=== PATIENT | male | born 1935 | race Caucasian/White ===

== ENCOUNTER 2020-08-09 18:02 | Inpatient (IN) | payer MEDICARE, OTHER ==
[2020-08-09] MEDS ORDERED: Acetaminophen 325 MG Tab PO PRN (18:53)
[2020-08-09] MEDS ORDERED: Ondansetron 4 MG/2 ML SDV IVPUSH PRN (18:53)
--- NOTE | 2020-08-09 18:58 | PCM.HP ---
H&P History of Present Illness - General Date of Service: 08/09/20 Admit Problem/Dx: Admission Diagnosis/Problem Admission Diagnosis/Problem Pneumonia Source of Information: Patient History Limitations: Reports: No Limitations - History of Present Illness Initial Comments - Free Text/Narative: Patient is an 84-year-old male with a medical history of hypertension, hemorrhagic CVA, CLL who presented from clinic with complaints of shortness of breath, cough and dizziness. Patient initially presented to clinic a week ago with complaints of dizziness and falls. He had CT scan done which was inconclusive. This was followed by MRI which failed to show any intracranial hemorrhage or new ischemic lesions. Patient continued to have dizziness and he thought was that he had BPPV. Arrangements will be made for patient to try physical therapy. Patient return to clinic today with complaints of shortness of breath and productive cough that have developed over the past few days. He also had dizziness and generalized weakness. He denied chest pain, nausea, vomiting, diarrhea, leg swelling, fever. He has had poor appetite over the past 1 week. He denies exposure to a nyone with COVID-19. Vitals significant for hypoxia at 88% on room air requiring 2 L of oxygen to get patient above 90%. Labs showed creatinine of 1.3( baseline) and BUN of 41. He has leukocytosis of 101.74 (usually runs in the 50s to 60s due to his CLL), last week WBC was 55.75. Hemoglobin was 8.6, last week was 9.1 (baseline in the mid 9.0). Platelet count was 130 (baseline 70s to 80s). Chest x-ray showed prominent patchy densities throughout both lungs concerning for infiltrate; and small bilateral pleural effusion. Patient was sent in for admission for pneumonia. Upon admission, rapid Covid test came back positive. - Related Data Allergies/Adverse Reactions: Allergies Allergy/AdvReac Type Severity Reaction Status Date / Time codeine Allergy Stomach Verified 03/13/16 17:02 Upset Home Medications: Home Meds Aspirin [Lo-Dose Aspirin EC] 81 mg PO DAILY 03/13/16 [History] Propranolol HCl [Inderal Xl] 120 mg PO ASDIRECTED 03/13/16 [History] Past Medical History Cardiovascular History: Reports: Hypertension Respiratory History: Reports: None Gastrointestinal History: Reports: None Genitourinary History: Reports: None Neurological History: Reports: None Psychiatric History: Reports: None Endocrine/Metabolic History: Reports: None Hematologic History: Reports: None Immunologic History: Reports: None Oncologic (Cancer) History: Reports: Other (See Below) Other Oncologic History: skin Dermatologic History: Reports: None - Past Surgical History GI Surgical History: Reports: None Social & Family History - Family History Family Medical History: Noncontributory - Caffeine Use Caffeine Use: Reports: Coffee - Living Situation & Occupation Living situation: Reports: Occupation: Other H&P Review of Systems - Review of Systems: Review Of Systems: See Below General: Reports: Malaise, Decreased Appetite HEENT: Reports: No Symptoms Pulmonary: Reports: Shortness of Breath, Cough Cardiovascular: Reports: No Symptoms Gastrointestinal: Reports: No Symptoms Genitourinary: Reports: No Symptoms Musculoskeletal: Reports: No Symptoms Skin: Reports: No Symptoms Psychiatric: Reports: No Symptoms Neurological: Reports: No Symptoms, Other (Dizziness) Hematologic/Lymphatic: Reports: No Symptoms Immunologic: Reports: No Symptoms Exam - Exam Exam: See Below - Exam Quality Assessment: Supplemental Oxygen General: Alert, Oriented, 4 HEENT: PERRLA, Hearing Intact, Mucosa Moist & [place], Nares Patent, Normal Nasal Septum, Posterior Pharynx Clear, Conjunctiva Clear, EOMI, EACs Clear, TMs Clear Neck: Supple, Trachea Midline, 2 Lungs: Crackles Cardiovascular: Regular Rate, Regular Rhythm GI/Abdominal Exam: Normal Bowel Sounds, Soft, Non-Tender, No Organomegaly, No Distention, No Abnormal Bruit, No Mass, Pelvis Stable Back Exam: Normal Inspection, Full Range of Motion, NT Extremities: Normal Inspection, Normal Range of Motion, Non-Tender, No Pedal Edema, Normal Capillary Refill Skin: Warm, Dry, Intact Neurological: Cranial Nerves Intact, Reflexes Equal Bilateral Neuro Extensive - Mental Status: Alert, Oriented x3, Normal Mood/Affect, Normal Cognition Neuro Extensive - Motor, Sensory, Reflexes: CN II-XII Intact, Normal Gait, Normal Reflexes Psychiatric: Alert, Normal Affect, Normal Mood - Patient Data Lab Results Last 24 hrs: Laboratory Results - last 24 hr 08/09/20 Range/Units 18:10 SARS CoV-2 RNA Rapid DESTINEE Positive H (NEGATIVE) Problem List Initiated/Reviewed/Updated: Yes Orders Last 24hrs: Active Orders 24 hr Category Date Time Status Patient Status [ADT] Routine ADT 08/09/20 18:53 Ordered Antiembolic Devices [RC] PER UNIT ROUTINE Care 08/09/20 18:56 Ordered Cardiac Monitoring [RC] CONTINUOUS Care 08/09/20 18:55 Ordered Oxygen Therapy [RC] PRN Care 08/09/20 18:53 Ordered Up ad Annamaria [RC] ASDIRECTED Care 08/09/20 18:53 Ordered VTE/DVT Education [RC] PER UNIT ROUTINE Care 08/09/20 18:53 Ordered Vital Signs [RC] Q4H Care 08/09/20 18:53 Ordered Regular Diet [DIET] Diet 08/09/20 Dinner Ordered Acetaminophen [TylenoL] Med 08/09/20 18:53 Ordered 650 mg PO Q4H PRN Enoxaparin [Lovenox] Med 08/09/20 19:00 Ordered 40 mg SUBCUT DAILY Ondansetron [Zofran] Med 08/09/20 18:53 Ordered 4 mg IVPUSH Q4H PRN Antiembolic Hose [OM.PC] Per Unit Routine Oth 08/09/20 18:55 Ordered Resuscitation Status Routine Resus Stat 08/09/20 18:53 Ordered Assessment/Plan Comment:: COVID-19 associated pneumonia Probable bacterial pneumonia Start patient on ceftriaxone and azithromycin Start Decadron 6 mg IV daily Patient will likely benefit from Remdesivir and convalescent plasma CKD Creatinine at baseline CLL Worsening leukocytosis concerning for transformation. Hypertension Hold antibiotics for now Thrombocytopenia Appears stable
[2020-08-09] MEDS ORDERED: cefTRIAXone 1 GM in Sodium Chloride 0.9% 50 ML IV SCH (20:00)
[2020-08-09] MEDS ORDERED: Dexamethasone 4 MG/ML SDV IVPUSH SCH (20:00)
--- NOTE | 2020-08-09 20:00 | PCM.DCSUM1 ---
Discharge Summary - Hospital Course Free Text/Narrative:: Patient is an 84-year-old male with a medical history of hypertension, hemorrhagic CVA, CLL who presented from clinic with complaints of shortness of breath, cough and dizziness. He had recently had CT scan and MRI of brain which ruled out acute intracranial process. He was found to be hypoxic at 88% on room air requiring 2 L of oxygen. Labs showed creatinine of 1.3( baseline) and BUN of 41. He has leukocytosis of 101.74 (usually runs in the 50s to 60s due to his CLL), last week WBC was 55.75. Hemoglobin was 8.6, last week was 9.1 (baseline in the mid 9.0). Platelet count was 130 (baseline 70s to 80s). Chest x-ray showed prominent patchy densities throughout both lungs concerning for infiltrate; and small bilateral pleural effusion. Patient's rapid Covid test came back positive. Blood cultures was obtained. He was started on dexamethasone, ceftriaxone and azithromycin. Due to significant leukocytosis in context of CLL, his overall comorbidities and age, patient was transferred to [facility] for further medical care. Problems addressed during hospitalization COVID-19 associated pneumonia Probable bacterial pneumonia Acute hypoxic respiratory failure CKD CLL Hypertension Thrombocytopenia Diagnosis: Stroke: No - Discharge Data Discharge Date: 08/09/20 Discharge Disposition: DC/Tfer to Acute Hospital 02 Condition: Fair - Referral to Home Health Primary Care Physician: Linda Owens NP - Discharge Plan *PRESCRIPTION DRUG MONITORING PROGRAM REVIEWED*: Not Applicable *COPY OF PRESCRIPTION DRUG MONITORING REPORT IN PATIENT ARNALDO: Not Applicable Home Medications: Home Meds Aspirin [Lo-Dose Aspirin EC] 81 mg PO DAILY 03/13/16 [History] Propranolol HCl [Inderal Xl] 120 mg PO ASDIRECTED 03/13/16 [History] Oxygen Therapy Mode: Nasal Cannula Oxygen Flow Rate (L/min): 2 Maintain SpO2% greater than: 90 - Discharge Summary/Plan Comment DC Time >30 min.: Yes - General Info Date of Service: 08/09/20 Admission Dx/Problem (Free Text: Admission Diagnosis/Problem Admission Diagnosis/Problem Pneumonia Subjective Update: Patient continues to complain of cough and dizziness. CODE STATUS addressed and patient wants to be full code. - Review of Systems General: Reports: Malaise, Appetite HEENT: Reports: No Symptoms Pulmonary: Reports: Shortness of Breath, Cough Cardiovascular: Reports: No Symptoms Gastrointestinal: Reports: No Symptoms Genitourinary: Reports: No Symptoms Musculoskeletal: Reports: No Symptoms Skin: Reports: No Symptoms Neurological: Reports: Dizziness Psychiatric: Reports: No Symptoms - Patient Data Vitals - Most Recent: Last Vital Signs Temp 99.3 F 08/09/20 18:53 Pulse 72 08/09/20 18:53 Resp 24 H 08/09/20 18:53 BP 147/70 H 08/09/20 18:53 Pulse Ox 89 L 08/09/20 18:53 Lab Results - Last 24 hrs: Laboratory Results - last 24 hr 08/09/20 Range/Units 18:10 SARS CoV-2 RNA Rapid [place] Positive H (NEGATIVE) Med Orders - Current: Current Medications Acetaminophen (Tylenol) 650 mg PO Q4H PRN PRN Reason: Pain (Mild 1-3)/fever Dexamethasone (Decadron) 6 mg IVPUSH DAILY ISSA Stop: 08/18/20 09:01 Enoxaparin Sodium (Lovenox) 40 mg SUBCUT DAILY [facility] Ceftriaxone Sodium 1 gm/ (Sodium Chloride) 50 mls @ 100 mls/hr IV Q24H ISSA Azithromycin 500 mg/ Sodium (Chloride) 250 mls @ 250 mls/hr IV Q24H ISSA Ondansetron HCl (Zofran) 4 mg IVPUSH Q4H PRN PRN Reason: Nausea/Vomiting - Exam Quality Assessment: Reports: Supplemental Oxygen General: Reports: Alert, Oriented HEENT: Reports: Pupils Equal, Pupils Reactive, EOMI, Mucous Membr. Moist/[place] Neck: Reports: Supple Lungs: Reports: Crackles Cardiovascular: Reports: Regular Rate, Regular Rhythm GI/Abdominal Exam: Normal Bowel Sounds, Soft, Non-Tender, No Organomegaly, No Distention, No Abnormal Bruit, No Mass, Pelvis Stable Back Exam: Reports: Normal Inspection, Full Range of Motion Extremities: Normal Inspection, Normal Range of Motion, Non-Tender, No Pedal Edema, Normal Capillary Refill Skin: Reports: Warm, Dry, Intact Neurological: Reports: No New Focal Deficit
[2020-08-09] MEDS ORDERED: Azithromycin 500 MG in Sodium Chloride 0.9% 250 ML IV SCH (21:00)
[2020-08-09] MEDS ORDERED: Enoxaparin 40 MG/0.4 ML Syringe SUBCUT ONE (23:15)
[2020-08-09] MEDS ORDERED: Enoxaparin 40 MG/0.4 ML Syringe SUBCUT SCH (23:30)
== END 2020-08-10 02:55 | DRG 177 ==
LOC: DL.MS 18:02 → UNDOADMIN 18:02 → DL.MS 18:53 → UNDODISIN 08-10 02:55
PROVIDERS: ADMIT Internal Medicine; ATTEND Internal Medicine
PROC: 8E0ZXY6 Isolation (ICD-10-PCS; principal; 2020-08-09)
DX: U07.1 COVID-19 (principal); J12.89 Other viral pneumonia; J15.9 Unspecified bacterial pneumonia; J96.01 Acute respiratory failure with hypoxia; C91.10 Chronic lymphocytic leukemia of B-cell type not having achieved remission; N18.9 Chronic kidney disease, unspecified; D69.6 Thrombocytopenia, unspecified; Z86.73 Personal history of transient ischemic attack (TIA), and cerebral infarction without residual deficits; Z79.82 Long term (current) use of aspirin; Z79.899 Other long term (current) drug therapy; Z88.5 Allergy status to narcotic agent; I12.9 Hypertensive chronic kidney disease with stage 1 through stage 4 chronic kidney disease, or unspecified chronic kidney disease
CPT/HCPCS: 36415; 87040; 99222; 99239; A9270-GY; J0456; J0696; J1100; J1650; J7050; U0002